=== PATIENT | male | born 1970 | race Caucasian/White ===

== ENCOUNTER → 2018-06-05 | Outpatient (CLI) | payer BC | END | disposition home or self-care (01) | LOC: LAB SHORT 19:01 → LAB EV 19:01 | DX: N12 Tubulo-interstitial nephritis, not specified as acute or chronic (principal); N20.0 Calculus of kidney | CPT/HCPCS: 87086 ==

== ENCOUNTER 2018-10-29 16:31 | Emergency (ER) | payer OTHER, BC ==
[~2018-10-29] VITALS: Ht 185.4 cm; Wt 154.2 kg
[2018-10-29] MEDS ORDERED: Metformin HCl850 MG PO (17:45)
[2018-10-29] MEDS ORDERED: Depo-Testos200 MG/ML IM (17:45)
[2018-10-29] MEDS ORDERED: HYDR1TAB94 PO (18:28)
[2018-10-29] MEDS ORDERED: Voltaren100 GM TOP (18:28)
[2018-10-29] MEDS ORDERED: CYCL10 PO (18:28)
== END 2018-10-29 18:39 | disposition home or self-care (01) ==
LOC: ER 16:31
DX: M54.5 Low back pain (principal); Z88.0 Allergy status to penicillin; Z79.899 Other long term (current) drug therapy; Z79.84 Long term (current) use of oral hypoglycemic drugs; E11.9 Type 2 diabetes mellitus without complications
CPT/HCPCS: 51798; 72100; 96372; 99283-25; J1885

== ENCOUNTER → 2019-11-19 | Outpatient (CLI) | payer BC ==
[~2019-11-19] MED LIST: CYCL10 PO; Depo-Testos200 MG/ML IM; HYDR1TAB94 PO; Metformin HCl850 MG PO; Voltaren100 GM TOP
== END | disposition home or self-care (01) ==
LOC: LAB SHORT 12:27 → LAB EV 12:27
DX: N20.0 Calculus of kidney (principal)
CPT/HCPCS: 87086

== ENCOUNTER 2020-12-19 03:05 | Emergency (ER) | payer BC ==
[~2020-12-19] VITALS: Ht 185.4 cm; Wt 149.7 kg
[~2020-12-19 03:05] MED LIST changes: +METFORMIN HCL1000 M2 PO; +TRULICITY0.75 MG/01 SC
[2020-12-19 03:45] LABS: BASOPHILS ABSOLUTE AUTO 0.08 K/mm3 (0.00-0.23); BASOPHILS PERCENT AUTO 1 % (0-2); EOSINOPHILS PERCENT AUTO 3 % (0-6); Hematocrit 54.1 % (37.0-53.0); Hemoglobin 17.7 g/dL (13.5-17.5); IMMATURE GRAN ABSOLUTE AUTO 0.04 K/mm3 (0.00-0.10); IMMATURE GRAN PERCENT AUTO 0 % (0-1); LYMPHOCYTES ABSOLUTE AUTO 4.65 K/mm3 (0.84-5.20); LYMPHOCYTES PERCENT AUTO 41 % (21-46); MONOCYTES ABSOLUTE AUTO 1.28 K/mm3 (0.16-1.47); MONOCYTES PERCENT AUTO 11 % (4-13); Mean Corpuscular HGB 29.4 pg (26.0-34.0); Mean Corpuscular HGB Conc 32.7 g/dL (31.5-36.5); Mean Corpuscular Volume 90 fL (80-100); Mean Platelet Volume 9.7 fL (9.1-12.4); NEUTROPHILS ABSOLUTE AUTO 4.96 K/mm3 (1.96-9.15); NEUTROPHILS PERCENT AUTO 44 % (41-73); Platelet Count 328 K/mm3 (150-400); RDW Coefficient Variation 12.6 % (11.7-14.2); RDW Standard Deviation 41.3 fL (35.1-46.3); Red Blood Cell Count 6.03 M/mm3 (4.30-5.90); White Blood Cell Count 11.31 K/mm3 (4.00-11.30)
[2020-12-19 04:03] LABS: Alanine Aminotransfer (ALT/SGP 39 U/L (12-78); Albumin, Blood 3.7 g/dL (3.4-5.0); Albumin/Globulin Ratio 0.7 (0.8-1.8); Alk Phos 117 U/L (50-136); Anion Gap 6 mmol/L (6-16); Aspartate Aminotrans (AST/SGOT 37 U/L (12-37); Bilirubin, Total 0.7 mg/dL (0.1-1.0); Blood Urea Nitrogen 20 mg/dL (8-24); Bun/Creatinine Ratio 20.9 (12.0-20.0); CO2, Blood 27 mmol/L (21-32); Calcium, Blood 9.5 mg/dL (8.5-10.1); Chloride, Blood 102 mmol/L (98-108); Creatinine, Blood 0.96 mg/dL (0.60-1.20); Glomerular Filtration Rate >60 (60-); Glucose, Blood 107 mg/dL (70-99); Potassium, Blood 4.4 mmol/L (3.5-5.5); Sodium, Blood 135 mmol/L (136-145); Total Protein, Blood 8.7 g/dL (6.4-8.2)
[2020-12-19 04:08] LABS: International Normalized Ratio 1.04; Prothrombin Time Results 11.1 Sec (9.7-11.5)
[2020-12-19 05:07] LABS: Source, Urine Voided
[2020-12-19 05:12] LABS: Bilirubin, Urine Neg (Neg); Blood, Urine 2+ (Neg); Glucose Qualitative, Urine Neg (Neg); Ketones, Urine Neg (Neg); Leukocyte Esterase, Urine 2+ (Neg); Nitrite, Urine Neg (Neg); Protein, Urine 1+ (Neg); Urobilinogen, Urine NORM (Normal)
[2020-12-19 05:15] LABS: Appearance, Urine Clear (Clear); Color, Urine Yellow (P-Yellow)
[2020-12-19 05:18] LABS: Bacteria Not Seen /hpf; Squamous Epithelial Cells Not Seen /hpf (Few); White Blood Cells, Urine 25-50 /hpf (0-5)
[2020-12-19 05:19] LABS: Calcium Oxalate Crystals Few /hpf
[2020-12-19] MEDS ORDERED: Fleet Enema132 ML PR (05:21)
[2020-12-19] MEDS ORDERED: Miralax17 GM PO (05:21)
[2020-12-19] MEDS ORDERED: CEFD300 PO (05:24)
[2021-01-13] MEDS ORDERED: TRAZ100 PO (11:44)
== END 2020-12-19 05:43 | disposition home or self-care (01) ==
LOC: ER 03:05
PROVIDERS: Emergency Medicine
DX: N39.0 Urinary tract infection, site not specified (principal); K59.00 Constipation, unspecified; E11.9 Type 2 diabetes mellitus without complications; Z88.0 Allergy status to penicillin; Z79.84 Long term (current) use of oral hypoglycemic drugs; Z79.899 Other long term (current) drug therapy; Z87.442 Personal history of urinary calculi
CPT/HCPCS: 36415; 74176; 80053; 81001; 83605; 85025; 85610; 87086; 96361; 96374; 96375; 99284-25; A9270; J0696; J1170; J1885; J2405; J7030

== ENCOUNTER 2025-05-13 20:46 | Emergency (ER) | payer OTHER, BC ==
[~2025-05-13] VITALS: Ht 185.4 cm; Wt 136.1 kg
[~2025-05-13 20:46] MED LIST changes: +CEFD300 PO; +Fleet Enema132 ML PR; +Miralax17 GM PO; +TRAZ100 PO
[2025-05-13 21:15] VITALS: BP 164/80
[2025-05-13] MEDS ORDERED: Trimethoprim/Sulfamethoxazole DS Tab PO ONE (23:35)
[2025-05-13] MEDS ORDERED: METR500 PO (23:37)
[2025-05-13] MEDS ORDERED: BACTRIM DS TAB1 EAC1 PO (23:37)
== END 2025-05-13 23:46 | disposition home or self-care (01) ==
LOC: ER 20:46
DX: S51.851A Open bite of right forearm, initial encounter (principal); W54.0XXA Bitten by dog, initial encounter; E11.9 Type 2 diabetes mellitus without complications; Z79.84 Long term (current) use of oral hypoglycemic drugs; Z79.899 Other long term (current) drug therapy; Z23 Encounter for immunization
CPT/HCPCS: 73090; 90471; 90715; 99283-25; A9270